=== PATIENT | male | born 1965 | race African-American/Black ===

== ENCOUNTER 2019-02-14 22:59 | Inpatient (IN) | payer OTHER ==
[~2019-02-14] VITALS: Ht 185.4 cm; Wt 124.0 kg
[~2019-02-14 22:59] MED LIST: HYDR25TA PO
[2019-02-14] MEDS ORDERED: HydrALAZINE HCL 20 MG/ML VIAL IVP ONE (23:15)
[2019-02-14] MEDS ORDERED: DiphenhydrAMINE HCL 50 MG/ML VIAL IVP ONE (23:15)
[2019-02-14] MEDS ORDERED: MethylPREDNISolone SOD SUCC 125 MG/2 ML VIAL IVP ONE (23:15)
[2019-02-14 23:19] LABS: BASOPHILS % (AUTO) 0.9 % (0.0-2.0); EOSINOPHILS % (AUTO) 1.1 % (1.0-6.0); HEMATOCRIT 42.4 % (41-53); HEMOGLOBIN 14.1 g/dL (13.5-17.5); LYMPHOCYTES # (AUTO) 1.6 K/uL (1.0-4.8); LYMPHOCYTES % (AUTO) 24.7 % (22.0-44.0); MEAN CORPUSCULAR HEMOGLOBIN 28.7 pg (26.0-34.0); MEAN CORPUSCULAR HGB CONC 33.1 G/dL (31.0-37.0); MEAN CORPUSCULAR VOLUME 87 fL (80-100); MONOCYTES # (AUTO) 0.8 K/uL (0.1-1.0); MONOCYTES % (AUTO) 13.2 % (2.0-9.0); NEUTROPHILS # (AUTO) 3.8 K/uL (1.8-7.7); NEUTROPHILS % (AUTO) 60.1 % (40.0-70.0); PLATELET COUNT (AUTO) 237 K/uL (150-450); RED CELL DISTRIBUTION WIDTH 12.8 % (11.5-14.5)
[2019-02-14] MEDS ORDERED: IOVERSOL 350 MG/ML 100 ML VIAL ONE (23:32)
[2019-02-14] MEDS ORDERED: SODIUM CHLORIDE 0.9% 100 ML ONE (23:32)
[2019-02-14 23:33] LABS: PROTHROMBIN TIME 10.4 SEC (9.4-11.6)
[2019-02-14 23:36] LABS: ALANINE AMINOTRANSFERASE 21 U/L (12-78); ALBUMIN 3.5 g/dL (3.4-5.0); ALKALINE PHOSPHATASE 197 U/L (46-116); ANION GAP 11 mmol/L (8-16); ASPARTATE AMINOTRANSFERASE 16 U/L (15-37); BILIRUBIN,TOTAL 1.3 mg/dL (0.1-1.0); CALCIUM, TOTAL 8.9 mg/dL (8.8-10.5); CARBON DIOXIDE 25 mmol/L (22-29); CHLORIDE 103 mmol/L (98-107); CREATININE 1.13 mg/dL (0.60-1.30); GLOMERULAR FILTR. RATE CALC > 60 mL/min (>60); GLUCOSE,RANDOM 112 mg/dL (70-110); POTASSIUM 3.3 mmol/L (3.5-5.1); SODIUM SERUM 139 mmol/L (136-145); UREA NITROGEN, BLOOD 13 mg/dL (7-18)
[2019-02-15] MEDS: HydrALAZINE HCL 20 MG/ML VIAL IVP ONE ×3 (00:06→01:30)
[2019-02-15] MEDS ORDERED: ASPIRIN 325 MG TABLET PO ONE (00:30)
[2019-02-15 01:05] LABS: APPEARANCE,URINE CLEAR (CLEAR); BILIRUBIN,URINE NEGATIVE (NEGATIVE); GLUCOSE, URINE (UA) NEGATIVE (NEGATIVE); KETONES,URINE TRACE mg/dL (NEGATIVE); LEUKOCYTE ESTERASE ,URINE NEGATIVE (NEGATIVE); NITRATE,URINE NEGATIVE (NEGATIVE); OCCULT BLOOD,URINE NEGATIVE (NEGATIVE); PH,URINE 6.5 (5.0-8.0); PROTEIN,URINE NEGATIVE (NEGATIVE)
[2019-02-15 01:11] LABS: AMPHET/METH SCREEN,URINE POSITIVE (NEGATIVE); BARBITURATE SCREEN, URINE NEGATIVE (NEGATIVE); BENZODIAZEPINES SCREEN,URINE NEGATIVE (NEGATIVE); CANNABINOID SCREEN,URINE POSITIVE (NEGATIVE); COCAINE SCREEN,URINE POSITIVE (NEGATIVE); METHADONE SCREEN, URINE NEGATIVE (NEGATIVE); OPIATE SCREEN,URINE NEGATIVE (NEGATIVE); PHENCYCLIDINE SCREEN,URINE NEGATIVE (NEGATIVE)
[2019-02-15 01:22] LABS: BACTERIA,URINE None Seen /HPF (None Seen); RBC,URINE 0-2 /HPF (0-2); SQUAMOUS EPITHELIAL CELL,UR Moderate /LPF (None Seen)
[2019-02-15 03:31] LABS: CHOL/HDL RATIO 6.2 (4.2-7.3); CHOLESTEROL 243 mg/dL (131-200); HDL CHOLESTEROL 39 mg/dL (40-60); LDL CHOL (CALC.) 186 mg/dL (0-130); TRIGLYCERIDES 88 mg/dL (15-150)
[2019-02-15] MEDS ORDERED: ATORVASTATIN CALCIUM 40 MG TABLET PO ONE (04:00)
[2019-02-15] MEDS ORDERED: CloNIDine HCL 0.2 MG TABLET PO ONE (04:00)
[2019-02-15] MEDS ORDERED: HydrALAZINE HCL 20 MG/ML VIAL IVP ONE (05:30)
[2019-02-15] MEDS ORDERED: ZOLPIDEM TARTRATE 5 MG TABLET PO PRN (09:00)
[2019-02-15] MEDS ORDERED: ONDANSETRON HCL 4 MG/2 ML VIAL IVP PRN (09:00)
[2019-02-15] MEDS ORDERED: MAGNESIUM HYDROXIDE SUSPENSION 30 ML UDCUP PO PRN (09:00)
[2019-02-15] MEDS ORDERED: MORPHINE SULFATE 2 MG/ML SYRINGE IVP PRN (09:00)
[2019-02-15] MEDS ORDERED: PANTOPRAZOLE SODIUM 40 MG/VIAL IVP SCH (09:00)
[2019-02-15] MEDS ORDERED: BISACODYL 10 MG RECTAL RECTAL SUPPOSITORY PR PRN (09:00)
[2019-02-15] MEDS ORDERED: ALBUTEROL SULFATE 2.5 MG/0.5 ML NEB SOLUTION NEB PRN (09:00)
[2019-02-15] MEDS ORDERED: ACETAMINOPHEN 325 MG TABLET PO PRN (09:00)
[2019-02-15] MEDS ORDERED: IPRATROPIUM BROMIDE 0.5 MG/2.5 ML NEB SOLUTION NEB PRN (09:00)
[2019-02-15] MEDS ORDERED: ASPIRIN 81 MG EC TABLET PO SCH (09:00)
[2019-02-15] MEDS ORDERED: HYDROCODONE/ACETAMINOPHEN 5-325 MG TABLET PO PRN (09:00)
[2019-02-15] MEDS ORDERED: HydrALAZINE HCL 20 MG/ML VIAL IVP PRN (09:15)
[2019-02-15] MEDS ORDERED: HYDROCHLOROTHIAZIDE 25 MG TABLET PO SCH (09:15)
[2019-02-15] MEDS: DOCUSATE SODIUM 100 MG CAPSULE PO SCH ×2 (09:36→20:38)
[2019-02-15] MEDS ORDERED: POTASSIUM CHL 10 MEQ/WATER 50 ML IV PRN (12:30)
[2019-02-15] MEDS: ATORVASTATIN CALCIUM 20 MG TABLET PO SCH (13:08)
[2019-02-15 16:20] VITALS: BP 136/76
[2019-02-15] MEDS: HEPARIN SODIUM,PORCINE 5,000 UNITS/ML VIAL SQ SCH ×2 (16:49→23:29)
[2019-02-15] MEDS: POTASSIUM CHLORIDE 20 MEQ ER TABLET PO PRN (18:10)
[2019-02-15 20:00] VITALS: BP 112/65
[2019-02-16 00:17] VITALS: BP 102/55
[2019-02-16 05:26] VITALS: BP 117/69
[2019-02-16 06:03] LABS: ANION GAP 6 mmol/L (8-16); CALCIUM, TOTAL 8.4 mg/dL (8.8-10.5); CARBON DIOXIDE 29 mmol/L (22-29); CHLORIDE 103 mmol/L (98-107); CREATININE 1.44 mg/dL (0.60-1.30); GLOMERULAR FILTR. RATE CALC > 60 mL/min (>60); GLUCOSE,RANDOM 134 mg/dL (70-110); POTASSIUM 3.5 mmol/L (3.5-5.1); SODIUM SERUM 138 mmol/L (136-145); UREA NITROGEN, BLOOD 25 mg/dL (7-18)
[2019-02-16 08:03] VITALS: BP 106/50
[2019-02-16] MEDS: HEPARIN SODIUM,PORCINE 5,000 UNITS/ML VIAL SQ SCH ×3 (09:55→23:40)
[2019-02-16] MEDS: DOCUSATE SODIUM 100 MG CAPSULE PO SCH ×2 (09:55→20:32)
[2019-02-16] MEDS: ASPIRIN 81 MG EC TABLET PO SCH (09:55)
[2019-02-16] MEDS: PANTOPRAZOLE SODIUM 40 MG DR TABLET PO SCH (09:55)
[2019-02-16] MEDS: ATORVASTATIN CALCIUM 20 MG TABLET PO SCH (09:55)
[2019-02-16] MEDS: POTASSIUM CHLORIDE 20 MEQ ER TABLET PO PRN (11:14)
[2019-02-16 11:21] VITALS: BP 115/72
[2019-02-16 15:24] VITALS: BP 134/77
[2019-02-16 20:33] VITALS: BP 104/55
[2019-02-17 00:22] VITALS: BP 108/77
[2019-02-17 04:00] VITALS: BP 123/67
[2019-02-17 07:33] VITALS: BP 126/69
[2019-02-17] MEDS: ASPIRIN 81 MG EC TABLET PO SCH (08:14)
[2019-02-17] MEDS: PANTOPRAZOLE SODIUM 40 MG DR TABLET PO SCH (08:14)
[2019-02-17] MEDS: ATORVASTATIN CALCIUM 20 MG TABLET PO SCH (08:14)
[2019-02-17] MEDS: HEPARIN SODIUM,PORCINE 5,000 UNITS/ML VIAL SQ SCH (08:14)
[2019-02-17] MEDS: DOCUSATE SODIUM 100 MG CAPSULE PO SCH (08:14)
[2019-02-17 11:11] VITALS: BP 121/70
== END 2019-02-17 13:45 | disposition home or self-care (01) | DRG 45 ==
LOC: EMS 23:00 → 5S 02-15 15:06
PROVIDERS: ADMIT Hospitalist; ATTEND Hospitalist
DX: I63.9 Cerebral infarction, unspecified (principal); N17.9 Acute kidney failure, unspecified; G93.89 Other specified disorders of brain; G81.91 Hemiplegia, unspecified affecting right dominant side; E66.9 Obesity, unspecified; I10 Essential (primary) hypertension; E87.6 Hypokalemia; F12.90 Cannabis use, unspecified, uncomplicated; F19.10 Other psychoactive substance abuse, uncomplicated; E78.5 Hyperlipidemia, unspecified; F15.10 Other stimulant abuse, uncomplicated; W18.39XA Other fall on same level, initial encounter; F14.10 Cocaine abuse, uncomplicated; Z68.36 Body mass index [BMI] 36.0-36.9, adult; Y93.89 Activity, other specified; Y92.89 Other specified places as the place of occurrence of the external cause; Y99.8 Other external cause status
CPT/HCPCS: 70496; 70551; 82948; 84132; 87086; 93005; 93306; 93880; 96374; 96375; 97162; 97165; 97530; 97535; C9113; G0378; J0360; J1200; J1644; J2930; J7050